=== PATIENT | male | born 1940 | race African-American/Black ===

== ENCOUNTER 2021-03-12 01:48 | Emergency (ER) | payer MEDICARE, MEDICAID ==
[~2021-03-12] VITALS: Ht 170.2 cm; Wt 87.0 kg
[2021-03-12] MEDS ORDERED: SODIUM CHLORIDE 0.9% 1,000 ML IV ONE (02:45)
[2021-03-12 03:02] LABS: HEMATOCRIT. 37.9 % (42.0-52.0); HEMOGLOBIN. 12.6 g/dL (14.0-18.0); MEAN CORPUSCULAR HEMOGLOBIN 32.2 pg (28.0-32.0); MEAN CORPUSCULAR VOLUME 96.8 fL (80.0-94.0); PLATELET 177 x1000/uL (130-400); RED BLOOD CELL COUNT 3.92 mill/uL (4.7-6.1); RED CELL DISTRIBUTION WIDTH 13.4 % (11.6-14.6)
[2021-03-12 03:08] LABS: PROTHROMBIN TIME 10.5 sec (9.6-11.0)
[2021-03-12 03:44] LABS: CHLORIDE 107 mEq/L (98-107)
[2021-03-12 03:53] LABS: CLARITY URINE CLEAR (CLEAR); COLOR URINE YELLOW (YELLOW); KETONES URINE NEGATIVE (NEGATIVE); LEUKOCYTE ESTERASE URINE NEGATIVE (NEGATIVE); NITRITE URINE NEGATIVE (NEGATIVE); OCCULT BLOOD URINE NEGATIVE (NEGATIVE); PROTEIN URINE NEGATIVE (NEGATIVE); SPECIFIC GRAVITY URINE 1.015 (1.005-1.030)
[2021-03-12] MEDS ORDERED: BACITRACIN ZINC OINT UDPKT TOP ONE (05:00)
[2021-03-12 05:41] LABS: PLATELET ESTIMATE NORMAL
[2021-03-12 06:10] VITALS: BP 139/56
== END 2021-03-12 06:41 | disposition home or self-care (01) ==
LOC: ER 02:14
DX: T83.83XA Hemorrhage due to genitourinary prosthetic devices, implants and grafts, initial encounter (principal); R42 Dizziness and giddiness; N48.89 Other specified disorders of penis; I95.9 Hypotension, unspecified; I10 Essential (primary) hypertension; E11.9 Type 2 diabetes mellitus without complications; Y83.8 Other surgical procedures as the cause of abnormal reaction of the patient, or of later complication, without mention of misadventure at the time of the procedure; Y92.89 Other specified places as the place of occurrence of the external cause
CPT/HCPCS: 36415; 80048; 81003; 85025; 85610; 86850; 86900; 86901; 96360; 99291; J7030

== ENCOUNTER 2023-05-18 17:24 | Emergency (ER) | payer MEDICARE, MEDICAID ==
[~2023-05-18] VITALS: Ht 167.6 cm; Wt 70.0 kg
[2023-05-18 17:44] VITALS: O2SAT 96
[2023-05-18] MEDS ORDERED: ACETAMINOPHEN 325MG TABLET PO ONE (18:00)
[2023-05-18] MEDS ORDERED: TETANUS, DIPHTHERIA, PERTUSSIS VAC/PF 0.5ML (>10YR OLD) IM ONE (18:00)
[2023-05-18] MEDS ORDERED: DEXAMETHASONE 10 MG/ML VIAL IV ONE (18:00)
[2023-05-18 18:18] LABS: BASOPHILS % 0.5 % (0.0-2.0); DIFFERENTIAL COMMENT 0; EOSINOPHILS % 1.5 % (0.0-5.0); HEMATOCRIT. 40.6 % (42.0-52.0); MEAN CORPUSCULAR HGB CONC 32.2 g/dL (31.0-37.0); MEAN CORPUSCULAR VOLUME 99.5 fL (80.0-94.0); MEAN PLATELET VOLUME 9.9 fl (7.4-10.4); MONOCYTES % 8.8 % (2.0-8.0); NEUTROPHILS % 56.2 % (40.0-76.0); PLATELET 144 x1000/uL (130-400); RED BLOOD CELL COUNT 4.08 mill/uL (4.7-6.1); RED CELL DISTRIBUTION WIDTH 13.8 % (11.6-14.6); WHITE BLOOD COUNT 4.1 x1000/uL (4.5-11.0)
[2023-05-18 18:27] LABS: PROTHROMBIN TIME 10.3 sec (9.6-11.0)
[2023-05-18 18:36] LABS: ALANINE AMINOTRANSFERASE 15 IU/L (10-49); ALBUMIN 3.9 g/dL (3.2-4.8); ASPARTATE AMINOTRANSFERASE 18 IU/L (<34); BILIRUBIN TOTAL 0.6 mg/dL (0.1-1.0); CARBON DIOXIDE 23 mEq/L (21-32); CHLORIDE 104 mEq/L (98-107); CREATININE 0.9 mg/dL (0.6-1.3); GLUCOSE 174 mg/dL (70-105); POTASSIUM 3.4 mEq/L (3.5-5.1); PROTEIN TOTAL 7.4 g/dL (6.0-8.3); SODIUM 138 mEq/L (136-145); UREA NITROGEN BLOOD 11 mg/dL (9-23)
[2023-05-18 22:15] VITALS: BP 120/63; PULSE 68; RESP 20; TEMP 98.3
== END 2023-05-18 22:25 | disposition short-term general hospital (02) ==
LOC: ER 17:24
DX: S09.90XA Unspecified injury of head, initial encounter (principal); M54.2 Cervicalgia; R53.1 Weakness; E11.9 Type 2 diabetes mellitus without complications; I10 Essential (primary) hypertension; W07.XXXA Fall from chair, initial encounter; Y93.89 Activity, other specified; Y92.89 Other specified places as the place of occurrence of the external cause; Y99.8 Other external cause status
CPT/HCPCS: 99291; 70450; 96374; 80053; 85025; 85610; 36415; 72125; 90715; 90471; J1100